=== PATIENT | female | born 1975 ===

== ENCOUNTER 2017-09-02 16:12 | Emergency (ER) | payer MEDICAID ==
[2017-09-02 16:38] VITALS: RESP 18
[2017-09-02 17:26] LABS: BASO # 0.1 K/uL (0.0-0.2); BASO % 0.6 % (0.0-2.0); EOS # 0.3 K/uL (0.0-0.7); EOS % 2.6 % (0.0-4.0); HEMOGLOBIN 11.9 g/dL (12.0-16.0); LYMPH # 4.1 K/uL (1.0-4.3); LYMPH % 34.2 % (20.0-40.0); MEAN CELL VOLUME 81.4 fl (81.0-99.0); MEAN CORPUSCULAR HEMOGLOBIN 26.1 pg (27.0-31.0); MEAN PLATELET VOLUME 8.9 fl (7.2-11.7); MONO # 0.6 K/uL (0.0-0.8); NEUT % 57.6 % (50.0-75.0); NRBC % 0.1 % (0.0-0.0); RBC 4.58 Mil/uL (3.80-5.20); RED CELL DISTRIBUTION WIDTH 14.1 % (11.5-14.5); WHITE BLOOD COUNT 12.1 K/uL (4.8-10.8)
[2017-09-02 17:34] LABS: ALB/GLOB RATIO 1.1 (1.0-2.1); ALBUMIN 4.2 g/dL (3.5-5.0); ALT/SGPT 41 U/L (9-52); AST/SGOT 29 U/L (14-36); BLOOD UREA NITROGEN 18 mg/dl (7-17); CALCIUM 9.7 mg/dL (8.4-10.2); GFR AFRICAN-AMERICAN > 60; GFR NON-AFRICAN AMERICAN > 60
[2017-09-02 17:37] LABS: INR 1.1 (0.9-1.2); PARTIAL THROMBOPLASTIN TIME 24.6 Seconds (25.6-37.1); PROTHROMBIN TIME 12.4 Seconds (9.8-13.1)
--- NOTE | 2017-09-02 17:40 | ED PDOC ---
HPI: Chest Pain Time Seen by Provider: 09/02/17 16:40 Chief Complaint (Nursing): Chest Pain Chief Complaint (Provider): Chest pain - Resolved History Per: Patient History/Exam Limitations: no limitations Onset/Duration Of Symptoms: Days Current Symptoms Are (Timing): Still Present Additional Complaint(s): 42 yo male with HTN presents with chest pain yesterday and this morning. Pt states yesterday she had central chest pain and took her BP which was 180/110. Pt reports taking aspirin and her BP medication. Pt states it resolved and she went to bed. Pt reports similar this morning. PT denies current pain. Pain central, dull. Past Medical History Reviewed: Historical Data, Nursing Documentation, Vital Signs Vital Signs: Last Vital Signs Temp 98 F 09/02/17 18:11 Pulse 68 09/02/17 18:11 Resp 18 09/02/17 16:33 BP 132/86 09/02/17 18:11 Pulse Ox 99 09/02/17 18:11 - Medical History PMH: HTN - Surgical History Surgical History: No Surg Hx - Family History Family History: States: No Known Family Hx - Living Arrangements Living Arrangements: With Family - Social History Current smoker - smoking cessation education provided: No Alcohol: None Drugs: Denies - Immunization History Hx Tetanus Toxoid Vaccination: No Hx Influenza Vaccination: No Hx Pneumococcal Vaccination: No - Allergies Allergies/Adverse Reactions: Allergies Allergy/AdvReac Type Severity Reaction Status Date / Time No Known Allergies Allergy Verified 09/02/17 16:33 Review of Systems ROS Statement: Except As Marked, All Systems Reviewed And Found Negative Constitutional: Negative for: Fever, Chills Cardiovascular: Positive for: Chest Pain. Negative for: Palpitations Respiratory: Negative for: Shortness of Breath Physical Exam - Reviewed Nursing Documentation Reviewed: Yes Vital Signs Reviewed: Yes - Physical Exam Appears: Positive for: Well, Non-toxic, No Acute Distress Head Exam: Positive for: ATRAUMATIC, NORMAL INSPECTION, NORMOCEPHALIC Skin: Positive for: Normal Color, Warm, DRY Eye Exam: Positive for: Normal appearance ENT: Positive for: Normal ENT Inspection Neck: Positive for: Normal, Painless ROM Cardiovascular/Chest: Positive for: Regular Rate, Rhythm Respiratory: Positive for: CNT, Normal Breath Sounds Gastrointestinal/Abdominal: Positive for: Normal Exam, Soft Back: Positive for: Normal Inspection Extremity: Positive for: Normal ROM Neurologic/Psych: Positive for: Alert, Oriented - Laboratory Results Result Diagrams: 09/02/17 17:20 09/02/17 17:20 - ECG O2 Sat by Pulse Oximetry: 98 Medical Decision Making Medical Decision Making: CXR - Normal EKG - Normal Labs normal Disposition - Clinical Impression Clinical Impression: Chest pain - Patient ED Disposition Is Patient to be Admitted: No Counseled Patient/Family Regarding: Diagnosis, Need For Followup - Disposition Disposition: Routine/Home Disposition Time: 18:49 Condition: STABLE Instructions: Chest Pain That Is Not Caused by the Heart (DC) Forms: [employer] (Indonesian)
[2017-09-02 18:12] VITALS: TEMP 98
--- NOTE | 2017-09-02 18:14 | RAD ---
HISTORY: chest pain yesterday and this morning, resolved COMPARISON: No prior. TECHNIQUE: Chest PA and lateral FINDINGS: LUNGS: No active pulmonary disease. PLEURA: No significant pleural effusion identified. No pneumothorax apparent. CARDIOVASCULAR: Normal. OSSEOUS STRUCTURES: No significant abnormalities. VISUALIZED UPPER ABDOMEN: Normal. OTHER FINDINGS: None. IMPRESSION: No active disease.
[2017-09-02 18:50] VITALS: O2SAT 98
[2017-09-02 19:05] VITALS: BP 130/70; PULSE 72
== END 2017-09-02 19:08 | disposition home or self-care (01) ==
LOC: H.ER 16:12
DX: R07.89 Other chest pain (principal); I10 Essential (primary) hypertension